=== PATIENT | male | born 2000 | race Caucasian/White ===

== ENCOUNTER 2018-07-30 14:20 | Inpatient (IN) | payer OTHER ==
[~2018-07-30] VITALS: Ht 177.8 cm; Wt 59.9 kg
[2018-07-30 14:58] VITALS: BP 134/84
[2018-07-30] MEDS ORDERED: ZOLPIDEM TARTRATE 10 MG TABLET PO PRN (15:15)
[2018-07-30] MEDS ORDERED: HALOPERIDOL 5 MG TABLET PO PRN (15:15)
[2018-07-30] MEDS ORDERED: HALO1 PO (16:16)
[2018-07-30] MEDS ORDERED: SERT50TA12 PO (16:16)
[2018-07-30] MEDS ORDERED: OLAN2.5T3 PO (16:16)
[2018-07-30 16:29] VITALS: BP 128/78
[2018-07-30] MEDS ORDERED: BACITRACIN 28.4 GM OINTMENT TP PRN (19:00)
[2018-07-30] MEDS ORDERED: ALBUTEROL SULFATE HFA 90 MCG/PUFF 8 GM INHALER IH PRN (19:00)
[2018-07-30] MEDS ORDERED: MAG HYDROX/AL HYDROX/SIMETH ES 30 ML SUSPENSION UDCUP PO PRN (19:00)
[2018-07-30] MEDS ORDERED: ONDANSETRON HCL 4 MG TABLET PO PRN (19:00)
[2018-07-30] MEDS ORDERED: ACETAMINOPHEN 325 MG TABLET PO PRN (19:00)
[2018-07-30] MEDS ORDERED: MAGNESIUM HYDROXIDE SUSPENSION 30 ML UDCUP PO PRN (19:00)
[2018-07-30] MEDS ORDERED: OMEPRAZOLE 20 MG CAPSULE PO PRN (19:00)
[2018-07-30] MEDS ORDERED: DOCUSATE SODIUM 100 MG CAPSULE PO PRN (19:00)
[2018-07-30] MEDS ORDERED: LOPERAMIDE HCL 2 MG CAPSULE PO PRN (19:00)
[2018-07-30] MEDS ORDERED: PETROLATUM,WHITE 71 GM JELLY TP PRN (19:00)
[2018-07-30] MEDS ORDERED: BENZOCAINE/MENTHOL LOZENGE MM PRN (19:00)
[2018-07-30] MEDS ORDERED: IBUPROFEN 600 MG TABLET PO PRN (19:00)
[2018-07-30] MEDS ORDERED: CloNIDine HCL 0.1 MG TABLET PO PRN (19:00)
[2018-07-30] MEDS: OLANZapine 7.5 MG TABLET PO SCH (20:43)
[2018-07-31 06:00] VITALS: BP 110/68
[2018-07-31 08:25] VITALS: BP 124/86
[2018-07-31 08:37] LABS: BASOPHILS % (AUTO) 1.1 % (0.0-2.0); EOSINOPHILS % (AUTO) 1.9 % (1.0-6.0); HEMATOCRIT 45.6 % (41-53); HEMOGLOBIN 15.7 g/dL (13.5-17.5); LYMPHOCYTES # (AUTO) 2.2 K/uL (1.0-4.8); LYMPHOCYTES % (AUTO) 49.8 % (22.0-44.0); MEAN CORPUSCULAR HGB CONC 34.3 G/dL (31.0-37.0); MEAN CORPUSCULAR VOLUME 90 fL (80-100); MONOCYTES # (AUTO) 0.5 K/uL (0.1-1.0); MONOCYTES % (AUTO) 10.4 % (2.0-9.0); NEUTROPHILS # (AUTO) 1.6 K/uL (1.8-7.7); NEUTROPHILS % (AUTO) 36.8 % (40.0-70.0); PLATELET COUNT (AUTO) 197 K/uL (150-450); RED BLOOD CELL COUNT(AUTO) 5.05 MIL/uL (4.50-5.90); RED CELL DISTRIBUTION WIDTH 13.1 % (11.5-14.5)
[2018-07-31 09:16] LABS: ALANINE AMINOTRANSFERASE 23 U/L (12-78); ALBUMIN 4.7 g/dL (3.4-5.0); ALKALINE PHOSPHATASE 80 U/L (46-116); ANION GAP 8 mmol/L (8-16); ASPARTATE AMINOTRANSFERASE 18 U/L (15-37); BILIRUBIN,TOTAL 1.4 mg/dL (0.1-1.0); CALCIUM, TOTAL 9.1 mg/dL (8.8-10.5); CARBON DIOXIDE 30 mmol/L (22-29); CHLORIDE 102 mmol/L (98-107); CHOL/HDL RATIO 3.7 (4.2-7.3); CHOLESTEROL 177 mg/dL (131-200); CREATININE 0.99 mg/dL (0.60-1.30); FREE T4 (FREE THYROXINE) 1.15 ng/dL (0.76-1.46); GLOMERULAR FILTR. RATE CALC > 60 mL/min (>60); GLUCOSE,RANDOM 100 mg/dL (70-110); HDL CHOLESTEROL 48 mg/dL (40-60); LDL CHOL (CALC.) 118 mg/dL (0-130); POTASSIUM 3.9 mmol/L (3.5-5.1); SODIUM SERUM 140 mmol/L (136-145); TOTAL PROTEIN, SERUM 8.3 g/dL (6.4-8.2); TRIGLYCERIDES 55 mg/dL (15-150); UREA NITROGEN, BLOOD 17 mg/dL (7-18)
[2018-07-31 09:31] LABS: HEMOGLOBIN A1C 5.1 % (4.5-6.2)
[2018-07-31 16:18] VITALS: BP 136/85
[2018-07-31] MEDS: OLANZapine 7.5 MG TABLET PO SCH (20:11)
[2018-08-01 03:51] VITALS: BP 120/81
[2018-08-01 08:46] VITALS: BP 111/69
[2018-08-01 16:14] VITALS: BP 136/76
[2018-08-01] MEDS: OLANZapine 7.5 MG TABLET PO SCH (20:24)
[2018-08-02 06:32] VITALS: BP 118/86
[2018-08-02 09:27] VITALS: BP 122/70
[2018-08-02 16:15] VITALS: BP 113/78
[2018-08-02] MEDS: LORazepam 2 MG TABLET PO PRN (20:15)
[2018-08-02] MEDS: OLANZapine 7.5 MG TABLET PO SCH (20:15)
[2018-08-03 06:14] VITALS: BP 134/90
[2018-08-03 08:11] VITALS: BP 102/70
[2018-08-03 16:09] VITALS: BP 140/63
[2018-08-03] MEDS: LORazepam 2 MG TABLET PO PRN (18:25)
[2018-08-03] MEDS: OLANZapine 7.5 MG TABLET PO SCH (20:06)
[2018-08-04 06:20] VITALS: BP 131/86
[2018-08-04 08:58] VITALS: BP 122/69
[2018-08-04] MEDS ORDERED: METHYL SALICYLATE/MENTHOL 85 GM CREAM TP PRN (16:00)
[2018-08-04] MEDS: LORazepam 2 MG TABLET PO PRN (16:00)
[2018-08-04 16:42] VITALS: BP 120/82
[2018-08-04] MEDS: OLANZapine 7.5 MG TABLET PO SCH (20:03)
[2018-08-05 05:28] VITALS: BP 107/71
[2018-08-05 08:33] VITALS: BP 116/86
[2018-08-05 16:03] VITALS: BP 132/84
[2018-08-05] MEDS: LORazepam 2 MG TABLET PO PRN (16:50)
[2018-08-05] MEDS: OLANZapine 7.5 MG TABLET PO SCH (20:09)
[2018-08-06 05:00] VITALS: BP 121/68
[2018-08-06 08:23] VITALS: BP 103/69
[2018-08-06 16:05] VITALS: BP 136/73
[2018-08-06 16:30] VITALS: BP 136/73
[2018-08-06] MEDS: OLANZapine 7.5 MG TABLET PO SCH (20:23)
[2018-08-07 05:30] VITALS: BP 126/81
[2018-08-07 08:40] VITALS: BP 122/70
[2018-08-07 16:16] VITALS: BP 124/89
[2018-08-07] MEDS ORDERED: OLAN15TA2 PO (19:14)
[2018-08-07] MEDS: OLANZapine 7.5 MG TABLET PO SCH (20:37)
[2018-08-08 04:31] VITALS: BP 120/81
[2018-08-08 08:33] VITALS: BP 110/69
== END 2018-08-08 13:25 | disposition home or self-care (01) | DRG 885 ==
LOC: B2X 15:15
PROVIDERS: ADMIT Psychiatry & Neurology Psychiatry; ATTEND Psychiatry & Neurology Psychiatry
DX: F25.9 Schizoaffective disorder, unspecified (principal); K59.00 Constipation, unspecified; F41.9 Anxiety disorder, unspecified; G47.00 Insomnia, unspecified; F12.90 Cannabis use, unspecified, uncomplicated
CPT/HCPCS: 83036; 84439; 84443; 87081; 90686